=== PATIENT | male | born 1990 | race Caucasian/White ===

== ENCOUNTER 2018-04-26 10:56 | Emergency (ER) | payer MEDICAID, OTHER ==
[~2018-04-26] VITALS: Ht 190.5 cm; Wt 99.8 kg
[2018-04-26 11:26] VITALS: BP 145/74
== END 2018-04-26 12:50 | disposition home or self-care (01) ==
LOC: ER 11:04
DX: R06.02 Shortness of breath (principal)
CPT/HCPCS: 71045-TC

== ENCOUNTER 2018-11-12 15:45 | Emergency (ER) | payer MEDICAID, OTHER ==
[~2018-11-12] VITALS: Ht 195.6 cm; Wt 136.1 kg
[2018-11-12 15:54] VITALS: BP 132/92
--- NOTE | 2018-11-12 16:12 | NUR ---
Patient discharged to home in stable condition. Written and verbal after care instructions given. Patient verbalizes understanding of instruction.
== END 2018-11-12 16:12 | disposition home or self-care (01) ==
LOC: ER 15:49
DX: S39.012A Strain of muscle, fascia and tendon of lower back, initial encounter (principal); X50.0XXA Overexertion from strenuous movement or load, initial encounter; Y93.89 Activity, other specified; Y92.89 Other specified places as the place of occurrence of the external cause; Y99.8 Other external cause status